=== PATIENT | female | born 1990 | race African-American/Black ===

== ENCOUNTER 2016-10-19 11:49 | Emergency (ER) | payer OTHER ==
[~2016-10-19 11:49] MED LIST: CIPRO PO; MOTRIN400 MG PO
== END 2016-10-19 12:32 | disposition home or self-care (01) ==
LOC: CFTX 11:49
DX: L02.412 Cutaneous abscess of left axilla (principal); F41.9 Anxiety disorder, unspecified; F32.9 Major depressive disorder, single episode, unspecified; F17.210 Nicotine dependence, cigarettes, uncomplicated
CPT/HCPCS: 10060; 99283

== ENCOUNTER 2016-10-21 13:30 | Emergency (ER) | payer OTHER | END 2016-10-21 13:35 | disposition home or self-care (01) | LOC: CFTX 13:30 | DX: Z48.01 Encounter for change or removal of surgical wound dressing (principal); F41.9 Anxiety disorder, unspecified; F32.9 Major depressive disorder, single episode, unspecified; F17.200 Nicotine dependence, unspecified, uncomplicated; J40 Bronchitis, not specified as acute or chronic | CPT/HCPCS: 99283 ==